=== PATIENT | male | born 2000 | race Caucasian/White ===

== ENCOUNTER 2021-05-10 18:58 | Emergency (ER) | payer BC ==
[~2021-05-10] VITALS: Ht 180.3 cm; Wt 83.9 kg
[~2021-05-10 18:58] MED LIST: AMOXIL250 MG/5 M PO; AUGMENTIN 400 M1 CTB PO; BACTRIM DS 8001 TA1 PO; BACTROBAN CREAM15 GM PO; CLARITIN-D 12 H1 TAB PO; DURICEF250 MG/5 M PO; FLONASE ALLERG9.9 ML NAS; MOTRIN CHI100 MG/5 M PO; NO MEDS; PREDNISONE10 MG PO; ROBITUSSIN DM 105 ML PO; ZITHROMAX200 MG/51 PO; ZOFRAN4 MG PO; Zofran4 MG PO
[2021-05-10 19:19] VITALS: BP 139/89
[2021-05-10] MEDS ORDERED: AUGMENTIN 875875 MG PO (22:33)
[2021-05-10] MEDS ORDERED: PREDNISONE20 M1 PO (22:33)
== END 2021-05-10 23:40 | disposition home or self-care (01) ==
LOC: ED 18:58
DX: J02.9 Acute pharyngitis, unspecified (principal); Z20.822 Contact with and (suspected) exposure to COVID-19; R50.9 Fever, unspecified

== ENCOUNTER 2021-12-17 09:52 | Emergency (ER) | payer BC ==
[~2021-12-17] VITALS: Ht 175.2 cm; Wt 90.7 kg
[~2021-12-17 09:52] MED LIST changes: +AUGMENTIN 875875 MG PO; +PREDNISONE20 M1 PO
[2021-12-17 10:08] VITALS: BP 137/78
[2021-12-17] MEDS ORDERED: TYLENOL325 M1 PO (11:31)
[2021-12-17] MEDS ORDERED: MUCINEX DM 30/61 TAB PO (11:31)
[2021-12-17] MEDS ORDERED: NAPROXEN250 MG PO (11:31)
== END 2021-12-17 12:09 | disposition home or self-care (01) ==
LOC: ED 09:52
DX: U07.1 COVID-19 (principal); G43.909 Migraine, unspecified, not intractable, without status migrainosus

== ENCOUNTER 2022-02-24 21:59 | Emergency (ER) | payer BC ==
[~2022-02-24] VITALS: Ht 175.2 cm; Wt 83.9 kg
[~2022-02-24 21:59] MED LIST changes: +MUCINEX DM 30/61 TAB PO; +NAPROXEN250 MG PO; +TYLENOL325 M1 PO
[2022-02-24 22:17] VITALS: BP 122/72
[2022-02-24 23:04] LABS: HEMATOCRIT 43.3 % (42.0-52.0); MEAN CELL VOLUME 91.9 fl (80.0-94.0); MEAN CORPUSCULAR HGB 31.6 pg (27.0-31.0); MEAN CORPUSCULAR HGB CONC 34.4 g/dl (33.0-37.0); MEAN PLATELET VOLUME 10.2 fl (9.6-12.3); PLATELET COUNT AUTOMATED 181 10*3/uL (130-400); RED BLOOD COUNT 4.71 10*6/uL (4.50-5.90); RED CELL DISTRI WIDTH 12.4 % (0-14.5); WHITE BLOOD COUNT 4.9 10*3/uL (4.8-10.8)
[2022-02-24 23:06] LABS: MANUAL DIFF REFLEX YES
[2022-02-24 23:15] LABS: ACT PARTIAL THROMBO TIME 28.5 SECONDS (20.0-32.1)
[2022-02-24 23:22] LABS: ALKALINE PHOSPHATASE 139 U/L (45-117); BUN 9 mg/dl (7-24); CHLORIDE 106 mmol/L (98-107); CREATININE 1.05 mg/dL (0.70-1.30); LIPASE 88 U/L (73-393); POTASSIUM 4.3 mmol/L (3.5-5.1); SGOT/AST 67 IU/L (3-35); SGPT/ALT 133 U/L (12-78); SODIUM 138 mmol/L (136-145); TOTAL PROTEIN 7.8 gm/dL (6.4-8.2)
[2022-02-24 23:24] LABS: ATYPICAL LYMPHS 2 % (0-0); BASOPHILS 1 % (0-1); TOTAL CELLS COUNTED 100 #CELLS
[2022-02-24 23:25] LABS: PLATELET SUFFICIENCY NORMAL (NORMAL)
[2022-02-24] MEDS ORDERED: Meclizine25 MG PO (23:40)
== END 2022-02-24 23:54 | disposition home or self-care (01) ==
LOC: ED 21:59
PROVIDERS: Family Medicine
DX: B34.9 Viral infection, unspecified (principal); Z20.822 Contact with and (suspected) exposure to COVID-19

== ENCOUNTER 2022-09-16 10:59 | Emergency (ER) | payer OTHER ==
[~2022-09-16] VITALS: Ht 175.2 cm; Wt 90.7 kg
[~2022-09-16 10:59] MED LIST changes: +Meclizine25 MG PO
[2022-09-16 11:16] VITALS: BP 137/89
[2022-09-16] MEDS ORDERED: ACYCLOVIR800 MG PO (12:16)
[2022-09-16] MEDS ORDERED: OCUFLOX 0.3% 5 M5 ML OPH (12:16)
== END 2022-09-16 12:42 | disposition home or self-care (01) ==
LOC: ED 10:59
DX: B00.50 Herpesviral ocular disease, unspecified (principal); H10.9 Unspecified conjunctivitis; Z98.890 Other specified postprocedural states

== ENCOUNTER 2024-04-26 06:25 | Emergency (ER) | payer BC ==
[~2024-04-26] VITALS: Ht 175.2 cm; Wt 99.8 kg
[~2024-04-26 06:25] MED LIST changes: +ACYCLOVIR800 MG PO; +OCUFLOX 0.3% 5 M5 ML OPH
[2024-04-26 06:34] VITALS: BP 145/88
[2024-04-26] MEDS ORDERED: Acetaminophen/Oxycodone 5 MG/325 MG TABLET PO ONE (06:55)
[2024-04-26] MEDS ORDERED: MELOXICAM15 MG PO (07:21)
== END 2024-04-26 07:27 | disposition home or self-care (01) ==
LOC: ED 06:25
DX: M79.672 Pain in left foot (principal); Z98.890 Other specified postprocedural states